=== PATIENT | female | born 1970 | race American Indian/Alaskan Native ===

== ENCOUNTER 2018-11-07 17:55 | Emergency (ER) | payer SELFPAY ==
--- NOTE | 2018-11-07 18:03 | Emergency Department Report ---
Blank Doc - Documentation Documentation: This is a 48-year-old female that presents with right finger pain. This initial assessment/diagnostic orders/clinical plan/treatment(s) is/are subject to change based on patient's health status, clinical progression and re- assessment by fellow clinical providers in the ED. Further treatment and workup at subsequent clinical providers discretion. Patient/guardians urged not to elope from the ED as their condition may be serious if not clinically assessed and managed. Initial orders include: 1- Patient sent to [facility] for further evaluation and treatment 2- xray
[2018-11-07 18:04] VITALS: BP 125/84
--- NOTE | 2018-11-07 18:40 | XRay Report ---
XR hand 3+V RT INDICATION / CLINICAL INFORMATION: Right hand pain. COMPARISON: None available. FINDINGS: BONES/JOINT(S): No acute fracture or subluxation. No significant degenerative changes. SOFT TISSUES: No significant abnormality. ADDITIONAL FINDINGS: None. Signer Name: Anderson Leblanc MD Signed: 11/07/2018 6:36 PM Workstation Name: [id number]
[2018-11-07] MEDS ORDERED: TYLENOL PO ONE (19:15)
[2018-11-07] MEDS ORDERED: IBUPROFEN PO ONE (19:15)
--- NOTE | 2018-11-07 20:40 | Emergency Department Report ---
ED General Adult HPI - General Chief complaint: Extremity Injury, Upper Stated complaint: SINUS/R THUMB/SIDE OF FACE PAIN Time Seen by Provider: 11/07/18 18:02 Source: patient Mode of arrival: Ambulatory Limitations: No Limitations - History of Present Illness Initial comments: Patient is a 48-year-old -[place]ish female who presents to the ED with persistent nasal and sinus congestion for the last 1 month, worse in the last 2 days. Patient also complains of worsening right thumb pain from an old injury years ago. Patient denies dizziness, fever, chills, nausea, vomiting, cough, chest pain, shortness of breath, fall or traumatic injury of the right hand. MD Complaint: right thumb pain; nasal and sinus congestion -: Gradual, month(s) (1) Location: chest, upper extremity (right thumb) Radiation: non-radiation Severity scale (0 -10): 7 Quality: aching, sharp Consistency: constant Improves with: none Worsens with: none Associated Symptoms: denies other symptoms, cough. denies: chest pain, diaphoresis, fever/chills, headaches, loss of appetite, malaise, nausea/vomiting, rash, seizure, shortness of breath, syncope Treatments Prior to Arrival: none - Related Data Previous Rx's Medication Instructions Recorded Last Taken Type Azithromycin [Zithromax Z-DEL] 250 mg PO DAILY #6 tablet 11/07/18 Unknown Rx Naproxen [Naprosyn] 500 mg PO Q12H PRN #20 tablet 11/07/18 Unknown Rx Prednisone [predniSONE 10 mg 10 mg PO .TAPER #21 tab.ds.pk 11/07/18 Unknown Rx (6-Day Pack, 21 Tabs)] Allergies Allergy/AdvReac Type Severity Reaction Status Date / Time No Known Allergies Allergy Unverified 11/07/18 17:57 ED Review of Systems ROS: Stated complaint: SINUS/R THUMB/SIDE OF FACE PAIN Other details as noted in HPI Constitutional: denies: chills, fever Eyes: denies: eye pain, eye discharge, vision change ENT: congestion, other (frontal sinus pain and pressure). denies: ear pain, throat pain Respiratory: cough. denies: shortness of breath, wheezing Cardiovascular: denies: chest pain, palpitations Endocrine: no symptoms reported Gastrointestinal: denies: abdominal pain, nausea, diarrhea Genitourinary: denies: urgency, dysuria, discharge Musculoskeletal: arthralgia (right thumb pain). 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 - Surgical History Past Surgical History?: Yes Additional Surgical History: TUBAL - Social History Smoking Status: Never Smoker Substance Use Type: None - Medications Home Medications: Home Medications Medication Instructions Recorded Confirmed Last Taken Type Azithromycin [Zithromax Z-DEL] 250 mg PO DAILY #6 tablet 11/07/18 Unknown Rx Naproxen [Naprosyn] 500 mg PO Q12H PRN #20 tablet 11/07/18 Unknown Rx Prednisone [predniSONE 10 mg 10 mg PO .TAPER #21 tab.ds.pk 11/07/18 Unknown Rx (6-Day Pack, 21 Tabs)] ED Physical Exam - General Limitations: No Limitations General appearance: alert, in no apparent distress - Head Head exam: Present: atraumatic, normocephalic, normal inspection - Eye Eye exam: Present: normal appearance, PERRL, EOMI Pupils: Present: normal accommodation - ENT ENT exam: Present: normal orophraynx, mucous membranes moist, TM's normal bilaterally, normal external ear exam, other (frontal sinus tenderness; grossly congested nasal passages) - Neck Neck exam: Present: normal inspection, full ROM. Absent: tenderness, meningismus, lymphadenopathy, thyromegaly - Respiratory Respiratory exam: Present: normal lung sounds bilaterally. Absent: respiratory distress, wheezes, rales, chest wall tenderness, prolonged expiratory - Cardiovascular Cardiovascular Exam: Present: normal rhythm, tachycardia. Absent: systolic murmur, diastolic murmur, rubs, gallop - GI/Abdominal GI/Abdominal exam: Present: soft, normal bowel sounds. Absent: tenderness, guarding, rebound, hyperactive bowel sounds, hypoactive bowel sounds, organomegaly - Rectal Rectal exam: Present: deferred - Extremities Exam Extremities exam: Present: normal inspection, full ROM, tenderness (Palpable right thumb tenderness), normal capillary refill. Absent: pedal edema, joint swelling - Back Exam Back exam: Present: normal inspection, full ROM. Absent: tenderness, CVA tenderness (R), CVA tenderness (L), muscle spasm - Neurological Exam Neurological exam: Present: alert, oriented X3, CN II-XII intact, normal gait, reflexes normal - Psychiatric Psychiatric exam: Present: normal affect, normal mood - Skin Skin exam: Present: warm, dry, intact, normal color. Absent: rash ED Course Vital Signs 11/07/18 11/07/18 18:02 19:28 Temperature 98.3 F Pulse Rate 107 H Respiratory 16 16 Rate Blood Pressure 125/84 O2 Sat by Pulse 97 Oximetry - Reevaluation(s) Reevaluation #1: 11/07/18 20:44 This is a 48 year-old female who presented to the ED with worsening right thumb pain and nasal and sinus congestion for 1 month. Patient is alert and oriented 3 and is not in distress. Right thumb x-ray shows no a cute fractures or subluxations. Patient was treated for pain and discharged home on medications and advised to follow-up with her primary care physician in 7-10 days for reevaluation. Patient was also advised to return to the ED immediately if symptoms get worse. ED Medical Decision Making - Radiology Data Radiology results: report reviewed, image reviewed Right hand x-ray shows no acute fractures or subluxations of the right thumb or any other abnormality. - Medical Decision Making This is a 48 year-old female who presented to the ED with worsening right thumb pain and nasal and sinus congestion for 1 month. Patient is alert and oriented 3 and is not in distress. Right thumb x-ray shows no acute fractures or subluxations. Patient was treated for pain and discharged home on medications and advised to follow-up with her primary care physician in 7-10 days for reevaluation. Patient was also advised to return to the ED immediately if symptoms get worse. - Differential Diagnosis Chronic right thumb tendonitis; Chronic osteoathritis; acute Sinusitis Critical care attestation.: If time is entered above; I have spent that time in minutes in the direct care of this critically ill patient, excluding procedure time. ED Disposition Clinical Impression: Tendinitis of right hand, Acute upper respiratory infection Disposition: DC-01 TO HOME OR SELFCARE Is pt being admited?: No Does the pt Need Aspirin: No Condition: Stable Instructions: Tendinitis (ED), Upper Respiratory Infection (ED), Sinusitis (ED) Additional Instructions: Take medications with food, drink plenty of fluids and follow-up with your primary care physician in 7-10 days for reevaluation. Return to the ED immediately if symptoms get worse. Prescriptions: Naproxen [Naprosyn] 500 mg PO Q12H PRN #20 tablet PRN Reason: Pain , Severe (7-10) Prednisone [predniSONE 10 mg (6-Day Pack, 21 Tabs)] 10 mg PO .TAPER #21 tab.ds.pk Azithromycin [Zithromax Z-DEL] 250 mg PO DAILY #6 tablet Referrals: BALJIT ARIZAINLAND MD KACIE [Primary Care Provider] - 3-5 Days Time of Disposition: 20:38 Print Language: SET[place]
== END 2018-11-07 20:58 | disposition home or self-care (01) ==
LOC: ED 17:55
DX: M77.9 Enthesopathy, unspecified (principal); J06.9 Acute upper respiratory infection, unspecified; G51.0 Bell's palsy; Z79.899 Other long term (current) drug therapy
CPT/HCPCS: 99283